=== PATIENT | male | born 2000 | race Caucasian/White ===

== ENCOUNTER 2020-01-17 22:05 | Emergency (ER) | payer BC, MEDICAID ==
[~2020-01-17] VITALS: Ht 167.6 cm; Wt 75.3 kg
--- NOTE | 2020-01-17 22:20 | NUR ---
Dr Day at bedside for MSE.
[2020-01-17] MEDS ORDERED: NEOMY/BACITRA/POLYMYXIN B OINT UD PACKET TP ONE ×2 (22:44→22:45)
[2020-01-17] MEDS ORDERED: TDAP DIPH,PERTUSS,TET VAC/PF 0.5 ML DISP.SYRIN IM ONE ×2 (22:44→22:45)
--- NOTE | 2020-01-17 23:05 | NUR ---
No adverse reactions noted after TDAP vaccine administration at this time. Wound care done on L hand, Forefinger avulsion, as instructed by MD. Triple ATB applied, covered with non-adherent dressings, and tube wrapped with 4x4 gauze and kerlix. Instructed patient how to do it at home if current dressing gets wet or soiled. Written and verbal after care instructions given. Patient verbalizes understanding of instructions. Stressed follow up or return to ER for worsening s/s. Patient ambulated out of ER in steady gait, to home in stable condition.
[2020-01-17 23:19] VITALS: BP 140/90
== END 2020-01-17 23:10 | disposition home or self-care (01) ==
LOC: ER 22:07
DX: S61.303A Unspecified open wound of left middle finger with damage to nail, initial encounter (principal); X58.XXXA Exposure to other specified factors, initial encounter; Y92.89 Other specified places as the place of occurrence of the external cause; R03.0 Elevated blood-pressure reading, without diagnosis of hypertension
CPT/HCPCS: 90715; A4663